=== PATIENT | male | born 1985 | race Two or more races ===

== ENCOUNTER 2020-11-27 00:23 | Emergency (ER) | payer SELFPAY ==
[~2020-11-27] VITALS: Ht 172.7 cm; Wt 80.0 kg
[2020-11-27 00:26] VITALS: BP 134/92
== END 2020-11-27 01:34 | disposition home or self-care (01) ==
LOC: ER 00:23
DX: G93.40 Encephalopathy, unspecified (principal); F10.129 Alcohol abuse with intoxication, unspecified; Y90.9 Presence of alcohol in blood, level not specified
CPT/HCPCS: 99283